=== PATIENT | male | born 1950 | race African-American/Black ===

== ENCOUNTER 2018-06-22 13:16 | Inpatient (IN) | payer BC, MEDICARE, OTHER ==
[2018-06-22 14:14] LABS: #Eosinphils 0.1 thou/uL (0.0-0.7); #Lymphocytes 1.1 thou/uL (1.20-3.40); #Monocytes 0.8 thou/uL (0.11-0.59); #Neutrophils 4.5 thou/uL (1.40-6.50); %Basophils 0.3 % (0.0-1.0); %Eosinophils 1.9 % (0.0-10.0); %Lymphocytes 17.3 % (21.0-51.0); %Monocytes 12.4 % (0.0-10.0); %Neutrophils 68.1 % (42.0-75.0); Hemoglobin 12.8 g/dL (14.0-18.0); Mean Corpuscular HGB CONC 29.6 g/dL (32.0-36.0); Mean Corpuscular Hemoglobin 29.3 pg (27.0-31.0); Mean Corpuscular Volume 99.1 fL (78.0-98.0); Mean Platelet Volume 7.9 fL (7.4-10.4); Platelet Count 148 thou/uL (130-400); RBC Distribution Width 14.6 % (11.5-14.5); Red Blood Cell (RBC) Count 4.36 mill/uL (4.70-6.10); White Blood Cell (WBC) Count 6.6 thou/uL (4.8-10.8)
--- NOTE | 2018-06-22 14:18 | RAD ---
PORTABLE CHEST: Date: 06-22-18 Provided Clinical History: Chest tightness and dyspnea. FINDINGS: Comparison is made with 04-23-08. The cardiac silhouette appears enlarged. The left lung base is suboptimally evaluated on this exam. T here is no definite focal consolidation, pleural fluid, or pneumothorax apparent. IMPRESSION: Cardiomegaly without evidence for an acute cardiopulmonary process. POS: [facility]
[2018-06-22 14:23] LABS: INR-International Normal Ratio 2.4; PTT 37.2 SEC (22.9-36.1); Prothrombin Time 26.4 SEC (12.0-14.7)
[2018-06-22 14:31] LABS: ALT (SGPT) 32 U/L (8-55); AST (SGOT) 43 U/L (5-34); Alkaline Phosphatase 114 U/L (40-150); Anion Gap 12 mmol/L (10-20); BUN (Urea Nitrogen) 29 mg/dL (8.4-25.7); CK (CPK) 36 U/L (30-200); Calc. Creatinine Clearance 0 mL/min (70-130); Carbon Dioxide 29 mmol/L (23-31); Chloride 96 mmol/L (98-107); Estimated GFR-MDRD 64; Globulin 4.7 g/dL (2.4-3.5); Glucose 124 mg/dL (80-115); Potassium 3.2 mmol/L (3.5-5.1); Protein, Total 7.7 g/dL (5.8-8.1); Sodium 134 mmol/L (136-145)
[2018-06-22] MEDS ORDERED: Nitroglycerin 2% Ointment 1 INCH/1 GM Packet ONE (14:33)
[2018-06-22] MEDS ORDERED: Nitroglycerin 0.4 MG TAB (25 Tab Bottle) ONE (14:33)
[2018-06-22 14:34] LABS: CKMB 1.4 ng/mL (0-6.6); Troponin I 0.154 ng/mL (< 0.028)
[2018-06-22] MEDS ORDERED: Furosemide 40 MG/4 ML VIAL ONE ×2 (15:12→15:18)
[2018-06-22] MEDS ORDERED: Nitroglycerin 0.4 MG TAB (25 Tab Bottle) PO PRN (16:38)
[2018-06-22] MEDS ORDERED: Ondansetron PF 4 MG/2 ML Vial IVP PRN (16:38)
[2018-06-22] MEDS ORDERED: Acetaminophen 325 MG TAB PO PRN (16:38)
[2018-06-22] MEDS ORDERED: Potassium Chloride 20 MEQ TAB PO SCH (16:45)
[2018-06-22 17:19] VITALS: BMI 27.9
--- NOTE | 2018-06-22 17:29 | HP ---
PRIMARY CARE PROVIDER: Marco Antonio Buckley MD, in [place]. PRIMARY CUSTOMER ACCOUNT EXECUTIVE: Dr. Nik Jean. PRIMARY CARDIO-ONCOLOGIST: Dr. Jewel Ibarra. CHIEF COMPLAINT: Shortness of breath. HISTORY OF PRESENT ILLNESS: Mr. Palacio is a pleasant 68-year-old gentleman who was seen at [facility] on 06/22/2018. He receives most of his medical care from [facility]. He repo rts that he was diagnosed with cardiac amyloidosis 2 months ago. He subsequently had a permanent pac emaker placed. He reports that it was not an AICD, but a pacemaker. The pacemaker site got infected . He had the permanent pacemaker removed. He was discharged home on 06/03/2018. He has been using a LifeVest since then. He reports that he developed shortness of breath with exertion. He reports occasional cough that is nonproductive. He denies any fevers or chills. He denies any abdominal pain. He receives care from home health agency 3 times a week. Today morning, he felt fine when he woke up. He subsequently brushed his teeth and then took a nap. Around 11 or 11:30 a.m., he felt short of breath. He reports that he always has orthopnea, that has not changed. He also reports bilateral lower extremity edema and he keeps his feet elevated for tianna t. He also reports that he had a brief chest tightness, but is unable to describe it further. 911 w as called. He received 3 aspirin and nitroglycerin, with the resolution of the chest tightness. Pat ient reports that he is currently feeling better. REVIEW OF SYSTEMS: All other systems reviewed and found to be negative. PAST MEDICAL HISTORY: Coronary artery disease, atrial fibrillation, status post PCI with stent, stat us post pacemaker and pacemaker removal, hypothyroidism, hypertension, and cardiac amyloidosis. PAST SURGICAL HISTORY: Permanent pacemaker placement and removal, and removal of part of intestine. SOCIAL HISTORY: No history of tobacco use, alcohol use or recreational drug use. FAMILY HISTORY: No family history of premature coronary artery disease. CODE STATUS: I discussed his code status. He is agreeable to chest compressions and electric shocks . He does not want to be intubated. CODE STATUS of DNI is being entered in the electronic medical r ecord. ALLERGIES: No known drug allergies. CURRENT MEDICATIONS: Warfarin 4 mg daily, metoprolol tartrate 50 mg every 8 hours as needed, magnesi um oxide 400 mg 2 times a day, minocycline 100 mg 2 times a day, torsemide 80 mg 3 times a day, fluti casone 50 mcg 2 sprays to nares once a day, Synthroid 175 mcg daily, Protonix 40 mg daily, Breo Ellip ta 1 inhalation daily, aspirin 81 mg daily, Os-Mushtaq 500 mg daily, vitamin D2 of 50,000 units once a we ek, Uloric 40 mg every other day and Cierra 60 mg daily. PHYSICAL EXAMINATION: GENERAL: Mr. Palacio is awake and alert, not in acute distress. VITAL SIGNS: Blood pressure is 110/80, pulse 102, oxygen saturation 100% on 3 liters of oxygen, he i s afebrile. EYES: No scleral icterus. No conjunctival pallor. ENT: Moist mucosal membranes, no oropharyngeal erythema or exudates. NECK: Supple, nontender, trachea is midline, he has jugular venous distention. RESPIRATORY: Accessory muscles of breathing are active. Chest wall movements are symmetric bilatera lly. LUNGS: Reveals a few bibasilar crackles. CARDIOVASCULAR: S1 and S2 are heard, regular. Peripheral pulses palpable. No carotid bruit, no per icardial rub. ABDOMEN: Soft, nontender, bowel sounds heard, no hepatomegaly, no splenomegaly. NEUROLOGIC: Cranial nerves II-XII are intact. Deep tendon reflexes are 2+. MUSCULOSKELETAL: Power is 5/5 in all 4 extremities. He has bilateral lower extremity edema. SKIN: No rashes or subcutaneous nodules. LYMPHATIC: No cervical lymphadenopathy. PSYCHIATRIC: Normal mood, normal affect. Patient is oriented to person, place, and time. LABORATORY DATA: Mr. Palacio's labs and investigations were reviewed. I reviewed his electrocardiog donny, which shows atrial fibrillation, no ST changes to suggest an acute coronary syndrome. I also re viewed his chest x-ray, which does not show any pulmonary infiltrates. There is no interstitial benedicto a. He has normal white count, macrocytic anemia with hemoglobin 12.8, normal platelet count. INR 2. 4, decreased sodium of 134, decreased potassium of 3.2, elevated blood urea nitrogen of 29, elevated creatinine of 1.34, decreased albumin of 3.0, mildly elevated AST of 43, normal total bilirubin, norm al ALT and normal alkaline phosphatase. First troponin I is indeterminate at 0.154. BNP is elevated at 1254. ASSESSMENT AND PLAN: Mr. Palacio is a pleasant 68-year-old gentleman who was seen at [facility] on 06/22/2018. His problem list includes: 1. Acute hypoxic respiratory failure: Mr. Palacio is presenting with acute hypoxic respiratory fail ure, most likely secondary to congestive heart failure exacerbation. He will be admitted to the hosp ital for further management, including intravenous diuretics. Cardiology service will be consulted f or opinion and help with management, given his complicated cardiac history. I will also obtain recor ds from his licensed psychiatric technician. 2. Acute on chronic congestive heart failure: We will start him on intravenous diuretics. I am not ordering a 2D echocardiogram, in case he had one done recently through his licensed psychiatric technician. I will janet it external records. 3. Hyponatremia: Mild, likely asymptomatic, we will recheck. 4. Hypokalemia: Replace potassium and recheck. 5. Renal insufficiency: Chronicity unclear, we will recheck his creatinine level. 6. Atrial fibrillation. Continue warfarin. 7. Hypothyroidism: Continue Synthroid. Many thanks for allowing me to participate in your patient's care. Please feel free to contact me wi th any questions or concerns. LEVEL OF RISK: High. LEVEL OF COMPLEXITY: High.
[2018-06-22 19:09] LABS: Troponin I 0.194 ng/mL (< 0.028)
[2018-06-22] MEDS ORDERED: Warfarin Sodium 2 MG TAB PO SCH (19:15)
[2018-06-22] MEDS: Metoprolol Tartrate 50 MG TAB PO SCH (21:01)
[2018-06-22] MEDS: Magnesium Oxide 400 MG TAB PO SCH (21:01)
[2018-06-22 21:24] LABS: Troponin I 0.178 ng/mL (< 0.028)
[2018-06-23] MEDS: Melatonin 3 MG TAB PO PRN ×3 (00:01→21:12)
[2018-06-23] MEDS ORDERED: Furosemide 40 MG/4 ML VIAL SLOW IVP SCH (06:00)
[2018-06-23 06:04] LABS: INR-International Normal Ratio 2.6; Prothrombin Time 27.6 SEC (12.0-14.7)
[2018-06-23 06:13] LABS: Anion Gap 12 mmol/L (10-20); BUN (Urea Nitrogen) 32 mg/dL (8.4-25.7); Calc. Creatinine Clearance 59 mL/min (70-130); Calcium 9.5 mg/dL (7.8-10.44); Carbon Dioxide 33 mmol/L (23-31); Chloride 96 mmol/L (98-107); Estimated GFR-MDRD 62; Glucose 86 mg/dL (80-115); Sodium 137 mmol/L (136-145)
[2018-06-23 06:14] LABS: #Basophils 0.1 thou/uL (0.0-0.2); #Eosinphils 0.1 thou/uL (0.0-0.7); #Lymphocytes 1.8 thou/uL (1.20-3.40); #Monocytes 0.9 thou/uL (0.11-0.59); #Neutrophils 5.2 thou/uL (1.40-6.50); %Basophils 0.7 % (0.0-1.0); %Eosinophils 1.3 % (0.0-10.0); %Lymphocytes 22.2 % (21.0-51.0); %Monocytes 11.5 % (0.0-10.0); %Neutrophils 64.4 % (42.0-75.0); Hemoglobin 13.2 g/dL (14.0-18.0); Mean Corpuscular HGB CONC 29.8 g/dL (32.0-36.0); Mean Corpuscular Hemoglobin 29.5 pg (27.0-31.0); Mean Corpuscular Volume 98.8 fL (78.0-98.0); Mean Platelet Volume 8.3 fL (7.4-10.4); Platelet Count 173 thou/uL (130-400); RBC Distribution Width 14.6 % (11.5-14.5); Red Blood Cell (RBC) Count 4.48 mill/uL (4.70-6.10)
[2018-06-23] MEDS: Levothyroxine 175 MCG TAB PO SCH (06:22)
[2018-06-23] MEDS: Mometasone/Formoterol 120 PUFF INHALER INH SCH ×2 (06:50→19:44)
[2018-06-23] MEDS ORDERED: Non-Formulary Item 1 EACH (Fexofenadine Hcl [Allegra Allergy] 60 MG) PO SCH (09:00)
[2018-06-23] MEDS ORDERED: Non-Formulary Item 1 EACH (Fluticasone/Vilanterol [Breo Ellipta 200-25 Mcg Inh] 1 EACH) IH SCH (09:00)
[2018-06-23] MEDS: Magnesium Oxide 400 MG TAB PO SCH ×2 (09:19→21:12)
[2018-06-23] MEDS: Loratadine 10 MG TAB PO SCH (09:19)
[2018-06-23] MEDS: Metoprolol Tartrate 50 MG TAB PO SCH ×3 (09:19→21:12)
[2018-06-23] MEDS: Aspirin 81 mg Enteric Coated Tablet PO SCH (09:19)
[2018-06-23] MEDS: Calcium Carbonate + Vit D 250 MG TAB PO SCH (09:24)
[2018-06-23] MEDS ORDERED: Furosemide 100 MG/10 ML VIAL SLOW IVP SCH (11:15)
[2018-06-23] MEDS ORDERED: Metolazone 5 MG TAB PO SCH (11:15)
[2018-06-23] MEDS: Fluticasone Propionate Nasal Spray 16 gm Bottle NASAL SCH (11:46)
[2018-06-23] MEDS: Febuxostat 40 MG TAB PO SCH (11:46)
--- NOTE | 2018-06-23 12:52 | CON ---
DATE OF CONSULTATION: 06/23/2018 REASON FOR CONSULTATION: Heart failure. HISTORY OF PRESENT ILLNESS: Mr. Palacio is a very pleasant 68-year-old gentleman wh o comes to the hospital for increased shortness of breath. He has a history of amyloid cardiomyopath y reviewing the records from the [facility] which is where he gets all his cardiac care. He had an EF of 40-45%, has had atrial fibrillation with multiple ablations, which have been unsuccessfu l. He had a thrombus in the left atrial appendage, which he is on Coumadin now for. He had a pacema ker, right and left ventricular leads were placed for dual chamber pacer in preparation of AV amari a blation; however, the pocket got infected and this was taken out and has been on a LifeVest since. C keeshatly, he came in because he was significantly more short of breath than normal and his legs were swelling much more so he decided to come in for evaluation. On my evaluation, he extremely short of breath just with talking, significant orthopnea and PND PAST MEDICAL HISTORY: 1. Amyloid cardiomyopathy. 2. EF at 40-45% on last echo at [facility] just about a month and a half ago. 3. Atrial fibrillation, status post AV node ablation x2 4. Coronary artery disease, status post stent to the left circumflex in 2007. 5. Hyperlipidemia. 6. Hypertension. 7. Hypothyroidism. 8. Pulmonary hypertension. 9. Thrombus of left atrial appendage secondary to chronic atrial fibrillation. PAST SURGICAL HISTORY: 1. Abdominal surgeries in the past. 2. Cardiac catheterization most recently in February of this year, radial approach. No stent was placed . 3. PVI in 2016 and a redo in 02/2018. 4. Cardioversions in the past. 5. Left circumflex stent in 2007. SOCIAL HISTORY: No tobacco, no drugs. Drinks about 12 cans of beer a week. FAMILY HISTORY: Noncontributory. REVIEW OF SYSTEMS: A 12-point review of systems was done and is otherwise negative unless stated in the history of present illness. PHYSICAL EXAMINATION: VITAL SIGNS: Temperature 97.8, pulse 96, respiration rate 20, satting 100% on 3 liters, blood pressu re 110/77. GENERAL: Awake, alert, oriented x3, in mild respiratory distress. If he is just sitting there he is comfortable. HEENT: Normocephalic, atraumatic. NECK: JVD up to about 15 cm of water. LUNGS: Have crackles bilaterally. CARDIOVASCULAR: S1, S2. No S3 or S4. ABDOMEN: Soft. Positive bowel sounds. EXTREMITIES: 3+ edema. SKIN: Warm and dry. LABORATORY DATA: Reviewed. White count of 6.6, hemoglobin 12.8, hematocrit 43, platelet count 148. Coags were reviewed. INR is therapeutic at 2.6. Chemistries were reviewed. Sodium 137, potassium 4.0, chloride of 96, carbon dioxide of 33, BUN of 32, creatinine 1.37, troponin has been indeterminat e range 0.15, 0.19, 0.17 and BNP of 1254, albumin of 3.0. EKG was reviewed. Chest x-ray was reviewed, no acute cardiopulmonary issues. ASSESSMENT AND PLAN: 1. Acute on chronic systolic and diastolic heart failure. 2. Pulmonary hypertension, likely decompensated at this time. 3. Cardiac amyloidosis 3. Coronary artery disease, stable. PLAN: 1. We will increase and maximize diuresis for now. We will increase Lasix to 80 mg IV b.i.d. We chu l give one dose of 80 IV once and will add metolazone 5 mg a day. 2. Records from [facility] have been reviewed. 3. He is extremely ill and if his renal function starts to increase and diuresis is not optimal, he may need an inotrope to increase cardiac output. 4. Echocardiogram to be done to make sure his LV function remains the same. Thank you for allowing me to participate in the care of your patient. We will follow the patient.
[2018-06-23] MEDS: Furosemide 40 MG/4 ML VIAL SLOW IVP SCH (14:38)
[2018-06-23] MEDS: Warfarin Sodium 2 MG TAB PO SCH (16:23)
[2018-06-24] MEDS: Levothyroxine 175 MCG TAB PO SCH (05:50)
[2018-06-24] MEDS: Furosemide 40 MG/4 ML VIAL SLOW IVP SCH ×2 (05:50→14:32)
[2018-06-24] MEDS: Mometasone/Formoterol 120 PUFF INHALER INH SCH ×2 (07:05→18:54)
[2018-06-24] MEDS ORDERED: Sodium Chloride 0.9% 10 ML ONE (08:34)
[2018-06-24] MEDS: Loratadine 10 MG TAB PO SCH (08:57)
[2018-06-24] MEDS: Aspirin 81 mg Enteric Coated Tablet PO SCH (08:57)
[2018-06-24] MEDS: Calcium Carbonate + Vit D 250 MG TAB PO SCH (08:57)
[2018-06-24] MEDS: Metoprolol Tartrate 50 MG TAB PO SCH ×3 (08:57→20:42)
[2018-06-24] MEDS: Magnesium Oxide 400 MG TAB PO SCH ×2 (08:57→20:42)
[2018-06-24] MEDS: Fluticasone Propionate Nasal Spray 16 gm Bottle NASAL SCH (08:57)
--- NOTE | 2018-06-24 10:05 | PDOC.CTH ---
Cardiology Progress Note - Subjective He continues to feel SOB. - Objective Vital Signs Temp Pulse Resp BP Pulse Ox 06/24/18 07:51 98.6 F 97 18 125/79 97 06/24/18 07:06 99 06/24/18 07:05 91 18 06/24/18 04:20 97.2 F L 84 18 117/76 100 Weight 175 lb 14.4 oz 06/23/18 06/24/18 06/25/18 06:59 06:59 06:59 Intake Total 590 640 Output Total 625 1235 Balance -35 -595 - Physical Examination General/Neuro: alert & oriented x3 Neck: no JVD present Lungs: unlabored respirations Heart: RRR Abdomen: NT/ND Extremities: + edema B (2+) - Telemetry Telemetry Rhythm: NSR - Labs Result Diagrams: 06/23/18 05:46 06/23/18 05:46 Troponin/CKMB CK-MB (CK-2) 1.4 ng/mL (0-6.6) 06/22/18 13:57 Troponin I 0.178 ng/mL (< 0.028) H 06/22/18 20:40 - Assessment/Plan 1. Acute on chronic systolic and diastolic heart failure. 2. Atrial fibrillation, chronic, rate controlled. 3. Amyloid heart 4. EF at 40-45% 5. S.P BiV pacemaker removl due to pocket infection,. 6. S/P PVAI, x 2, currently awaiting AVJ ablation once PPM can be placed. 7. CAD s/p stent to LCx in 2007. 8. Pulmonary hypertension. PLAN: - Continue diuresis. - IV lasix BID at current dose and daily metolazone. - If no improvement in the next 24 to 48 hrs will need milrinone drip. Most of his fluid is on his right side, abdomen and legs.
[2018-06-24] MEDS ORDERED: Metolazone 5 MG TAB PO SCH (10:15)
--- NOTE | 2018-06-24 12:08 | PDOC.PN ---
- Subjective Encounter Start Date: 06/23/18 Encounter Start Time: 14:00 -: old records requested/rev Pt seen and examined, chart reviewed in its entirety, this is my first visit with this patient Follow up for acute on chronic CHF, combined systolic and diastolic, dyspnea, acute hypoxemic resp failure, amyloid heart Admitted overnight, states breathing isnt really any better, but no worse, no CP , no F/C, no cough, no D/C All systems reviewed and neg x as above - Objective Resuscitation Status: Resuscitation Status DNI:No Intubation MAR Reviewed: Yes Vital Signs & Weight: Vital Signs (12 hours) Temp Pulse Resp BP Pulse Ox 06/24/18 07:51 98.6 F 97 18 125/79 97 06/24/18 07:06 99 06/24/18 07:05 91 18 06/24/18 04:20 97.2 F L 84 18 117/76 100 Weight Weight 175 lb 14.4 oz I&O: 06/23/18 06/24/18 06/25/18 06:59 06:59 06:59 Intake Total 590 640 Output Total 625 1235 Balance -35 -595 Result Diagrams: 06/23/18 05:46 06/23/18 05:46 Additional Labs: Accuchecks 06/24/18 06/24/18 06/23/18 11:01 06:13 21:48 POC Glucose 125 H 104 123 H Radiology Reviewed by me: Yes EKG Reviewed by me: Yes Phys Exam - Physical Examination Constitutional: NAD chronically ill-appearing, no resp distress HEENT: PERRLA, moist MMs, sclera anicteric, oral pharynx no lesions Neck: no nodes, no JVD, supple, full ROM coarse R>L bibasialr crackles, dont clear with deep inspiration irregularly irregualr, no sig murmurs Gastrointestinal: soft, non-tender, no distention, positive bowel sounds Musculoskeletal: edema present 2+ to knees, apparently improved Neurological: non-focal, normal sensation, moves all 4 limbs Lymphatic: no nodes Psychiatric: normal affect, A&O x 3 Skin: no rash, normal turgor, cap refill <2 seconds Dx/Plan (1) Acute hypoxemic respiratory failure Code(s): J96.01 - ACUTE RESPIRATORY FAILURE WITH HYPOXIA Status: Acute (2) Acute on chronic combined systolic (congestive) and diastolic (congestive) heart failure Code(s): I50.43 - ACUTE ON CHRONIC COMBINED SYSTOLIC AND DIASTOLIC HRT FAIL Status: Acute Comment: cards consulted, echo ordered, follow up on their recommendations, get echo from his primary environmental compliance manager i believe in [place] (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 - ORGAN-LIMITED AMYLOIDOSIS; I43 - CARDIOMYOPATHY IN DISEASES CLASSIFIED ELSEWHERE Status: Chronic (4) Hyponatremia Code(s): E87.1 - HYPO-OSMOLALITY AND HYPONATREMIA Status: Chronic (5) Hypokalemia Code(s): E87.6 - HYPOKALEMIA Status: Acute - Plan cont current plan of care, plan discussed w/ family, PT/OT, out of bed/ambulate * .
--- NOTE | 2018-06-24 12:13 | PDOC.PN ---
- Subjective Encounter Start Date: 06/24/18 Encounter Start Time: 09:00 pt feels about the same,feels bad, but admits he never feels good. breathing is better to my eye, less edema. some response to diuresis, hasnt slept well in several days No BM in 3-4 days No F/C,no N/V, no cough or sputum production all systesm reviewed and neg x as above - Objective Resuscitation Status: Resuscitation Status DNI:No Intubation MAR Reviewed: Yes Vital Signs & Weight: Vital Signs (12 hours) Temp Pulse Resp BP Pulse Ox 06/24/18 07:51 98.6 F 97 18 125/79 97 06/24/18 07:06 99 06/24/18 07:05 91 18 06/24/18 04:20 97.2 F L 84 18 117/76 100 Weight Weight 175 lb 14.4 oz I&O: 06/23/18 06/24/18 06/25/18 06:59 06:59 06:59 Intake Total 590 640 Output Total 625 1235 Balance -35 -595 Result Diagrams: 06/23/18 05:46 06/23/18 05:46 Additional Labs: Accuchecks 06/24/18 06/24/18 06/23/18 11:01 06:13 21:48 POC Glucose 125 H 104 123 H Phys Exam - Physical Examination Constitutional: NAD NC on forehead... HEENT: PERRLA, moist MMs, sclera anicteric, oral pharynx no lesions Neck: no nodes, supple, full ROM Respiratory: no wheezing, no rales, no rhonchi Cardiovascular: no significant murmur, no rub, irregular Gastrointestinal: soft, non-tender, no distention, positive bowel sounds slightly hyperactive, no fluid Musculoskeletal: no edema Neurological: non-focal, normal sensation, moves all 4 limbs Lymphatic: no nodes Psychiatric: normal affect, A&O x 3 Skin: no rash, normal turgor, cap refill <2 seconds Dx/Plan (1) Acute hypoxemic respiratory failure Code(s): J96.01 - ACUTE RESPIRATORY FAILURE WITH HYPOXIA Status: Acute Comment: wean o2 as tolerated. (2) Acute on chronic combined systolic (congestive) and diastolic (congestive) heart failure Code(s): I50.43 - ACUTE ON CHRONIC COMBINED SYSTOLIC AND DIASTOLIC HRT FAIL Status: Acute Comment: cards consulted, echo ordered, follow up on their recommendations, last EF 40-45%, severe PH andf diastolic dysfunction, continue IV lasix for diuresis (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 - ORGAN-LIMITED AMYLOIDOSIS; I43 - CARDIOMYOPATHY IN DISEASES CLASSIFIED ELSEWHERE Status: Chronic (4) Hyponatremia Code(s): E87.1 - HYPO-OSMOLALITY AND HYPONATREMIA Status: Chronic (5) Hypokalemia Code(s): E87.6 - HYPOKALEMIA Status: Resolved - Plan cont current plan of care, plan discussed w/ family, PT/OT * .
[2018-06-24 12:30] LABS: INR-International Normal Ratio 3.2
[2018-06-24] MEDS: Warfarin Sodium 2 MG TAB PO SCH (16:32)
[2018-06-25] MEDS: Furosemide 40 MG/4 ML VIAL SLOW IVP SCH ×2 (05:41→14:53)
[2018-06-25] MEDS: Levothyroxine 175 MCG TAB PO SCH (05:41)
[2018-06-25 05:50] LABS: #Eosinphils 0.2 thou/uL (0.0-0.7); #Lymphocytes 1.3 thou/uL (1.20-3.40); #Monocytes 0.8 thou/uL (0.11-0.59); %Basophils 0.5 % (0.0-1.0); %Eosinophils 2.3 % (0.0-10.0); %Lymphocytes 18.1 % (21.0-51.0); %Monocytes 11.2 % (0.0-10.0); %Neutrophils 67.9 % (42.0-75.0); Hemoglobin 12.9 g/dL (14.0-18.0); Mean Corpuscular HGB CONC 30.4 g/dL (32.0-36.0); Mean Corpuscular Hemoglobin 29.2 pg (27.0-31.0); Mean Corpuscular Volume 95.9 fL (78.0-98.0); Mean Platelet Volume 8.4 fL (7.4-10.4); Platelet Count 160 thou/uL (130-400); RBC Distribution Width 14.6 % (11.5-14.5); Red Blood Cell (RBC) Count 4.43 mill/uL (4.70-6.10); White Blood Cell (WBC) Count 7.3 thou/uL (4.8-10.8)
[2018-06-25 06:07] LABS: Anion Gap 16 mmol/L (10-20); BUN (Urea Nitrogen) 43 mg/dL (8.4-25.7); Calc. Creatinine Clearance 44 mL/min (70-130); Carbon Dioxide 25 mmol/L (23-31); Chloride 91 mmol/L (98-107); Estimated GFR-MDRD 47; Glucose 120 mg/dL (80-115); Magnesium 1.9 mg/dL (1.6-2.6); Potassium 3.4 mmol/L (3.5-5.1); Sodium 129 mmol/L (136-145)
[2018-06-25 06:20] LABS: INR-International Normal Ratio 3.3; Prothrombin Time 33.5 SEC (12.0-14.7)
[2018-06-25] MEDS: Mometasone/Formoterol 120 PUFF INHALER INH SCH ×2 (06:27→19:17)
--- NOTE | 2018-06-25 07:42 | PDOC.CTH ---
<Jodi Castillo - Last Filed: 06/25/18 08:54> Cardiology Progress Note - Subjective Continues to feel short of breath. No other acute complaints. - ROS shortness of breath - Objective Vital Signs Temp Pulse Resp BP Pulse Ox 06/25/18 07:20 97.5 F L 71 15 132/82 100 06/25/18 06:28 100 06/25/18 06:27 74 16 06/25/18 04:00 97.1 F L 61 18 122/85 96 06/25/18 03:46 97 06/25/18 00:00 92 139/84 Weight 173 lb 11.2 oz 06/24/18 06/25/18 06/26/18 06:59 06:59 06:59 Intake Total 640 800 Output Total 1235 1700 Balance -595 -900 - Physical Examination General/Neuro: alert & oriented x3 Neck: no JVD present Lungs: CTA, unlabored respirations Heart: other: (Irregularly irregular) Extremities: + edema B (2+ edema BLE) - Telemetry Telemetry Rhythm: Afib 90s-100s - Labs Result Diagrams: 06/25/18 05:22 06/25/18 05:22 Troponin/CKMB CK-MB (CK-2) 1.4 ng/mL (0-6.6) 06/22/18 13:57 Troponin I 0.178 ng/mL (< 0.028) H 06/22/18 20:40 - Assessment/Plan 1. Acute on chronic systolic and diastolic heart failure. 2. Atrial fibrillation, chronic, rate controlled. On warfarin. 3. Amyloid heart 4. EF at 40-45% 5. S.P BiV pacemaker removl due to pocket infection,. 6. S/P PVAI, x 2, currently awaiting AVJ ablation once PPM can be placed. 7. CAD s/p stent to LCx in 2007 8. Pulmonary hypertension. 9. NSVT-10 beats, asymptomatic. Life Vest in place. 10. Hyponatremia-Na+ 129 PLAN: - Continue diuresis. Replace potassium. BMP in am. - IV lasix BID at current dose and daily metolazone. <Gabriella Ruiz - Last Filed: 06/25/18 08:56> Cardiology Progress Note - Objective Vital Signs Temp Pulse Resp BP Pulse Ox 06/25/18 07:20 97.5 F L 71 15 132/82 100 06/25/18 06:28 100 06/25/18 06:27 74 16 06/25/18 04:00 97.1 F L 61 18 122/85 96 06/25/18 03:46 97 06/25/18 00:00 92 139/84 Weight 173 lb 11.2 oz 06/24/18 06/25/18 06/26/18 06:59 06:59 06:59 Intake Total 640 800 Output Total 1235 1700 Balance -595 -900 - Labs Result Diagrams: 06/25/18 05:22 06/25/18 05:22 Troponin/CKMB CK-MB (CK-2) 1.4 ng/mL (0-6.6) 06/22/18 13:57 Troponin I 0.178 ng/mL (< 0.028) H 06/22/18 20:40 Attending Addendum - Attending Addendum Date/Time: 06/25/18 1478 I personally evaluated the patient and discussed the management with Jodi Castillo I agree with the History, Examination, Assessment and Plan documented above with any addition or exceptions noted below.
[2018-06-25] MEDS ORDERED: Potassium Chloride 20 MEQ TAB PO SCH (08:00)
[2018-06-25] MEDS ORDERED: Potassium Chloride 20 MEQ TAB ONE (08:17)
[2018-06-25] MEDS: Aspirin 81 mg Enteric Coated Tablet PO SCH (08:20)
[2018-06-25] MEDS: Calcium Carbonate + Vit D 250 MG TAB PO SCH (08:20)
[2018-06-25] MEDS: Loratadine 10 MG TAB PO SCH (08:20)
[2018-06-25] MEDS: Metolazone 5 MG TAB PO SCH (08:20)
[2018-06-25] MEDS: Magnesium Oxide 400 MG TAB PO SCH ×2 (08:20→21:55)
[2018-06-25] MEDS: Fluticasone Propionate Nasal Spray 16 gm Bottle NASAL SCH (08:20)
[2018-06-25] MEDS: Febuxostat 40 MG TAB PO SCH (08:20)
[2018-06-25] MEDS: Metoprolol Tartrate 50 MG TAB PO SCH ×3 (08:20→21:55)
--- NOTE | 2018-06-25 13:29 | PDOC.PN ---
- Subjective Encounter Start Date: 06/25/18 Encounter Start Time: 09:50 Follow up for acut elisabeth chronic combined systolic and diastolic CHF. repsnsing to diureses, SOB at rest improved, still iwth NDIAYE, no PND, no orthopnea No F/C, no N/V/D/C, no CP or sOB, no cough or sputum All systems reviewed and neg x as above - Objective Resuscitation Status: Resuscitation Status DNI:No Intubation MAR Reviewed: Yes Vital Signs & Weight: Vital Signs (12 hours) Temp Pulse Resp BP BP Pulse Ox 06/25/18 11:25 97.0 F L 61 16 128/97 H 96 06/25/18 07:20 97.5 F L 71 15 132/82 100 06/25/18 06:28 100 06/25/18 06:27 74 16 06/25/18 04:00 97.1 F L 61 18 122/85 96 06/25/18 03:46 97 Weight Weight 173 lb 11.2 oz I&O: 06/24/18 06/25/18 06/26/18 06:59 06:59 06:59 Intake Total 640 800 Output Total 1235 1700 Balance -595 -900 Result Diagrams: 06/25/18 05:22 06/26/18 03:13 Additional Labs: Accuchecks 06/25/18 06/25/18 06/24/18 11:25 05:26 20:42 POC Glucose 93 125 H 82 06/24/18 16:15 POC Glucose 136 H Phys Exam - Physical Examination Constitutional: NAD HEENT: PERRLA, moist MMs, sclera anicteric, oral pharynx no lesions Neck: no nodes, no JVD, supple, full ROM Respiratory: no wheezing, no rales, no rhonchi, clear to auscultation bilateral Cardiovascular: no significant murmur Gastrointestinal: soft, non-tender, no distention, positive bowel sounds Musculoskeletal: edema present improving Neurological: non-focal, normal sensation, moves all 4 limbs Lymphatic: no nodes Psychiatric: A&O x 3 Skin: no rash, normal turgor, cap refill <2 seconds Dx/Plan (1) Acute hypoxemic respiratory failure Code(s): J96.01 - ACUTE RESPIRATORY FAILURE WITH HYPOXIA Status: Acute Comment: wean o2 as tolerated. 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 CCM, continue diuresis, follow up on cardiology recs
[2018-06-25] MEDS: Warfarin Sodium 2 MG TAB PO SCH (17:25)
[2018-06-25] MEDS: Melatonin 3 MG TAB PO PRN (22:24)
[2018-06-26 04:35] LABS: INR-International Normal Ratio 3.4; Prothrombin Time 34.1 SEC (12.0-14.7)
[2018-06-26 04:42] LABS: Anion Gap 15 mmol/L (10-20); BUN (Urea Nitrogen) 46 mg/dL (8.4-25.7); Calc. Creatinine Clearance 41 mL/min (70-130); Calcium 9.2 mg/dL (7.8-10.44); Carbon Dioxide 33 mmol/L (23-31); Chloride 88 mmol/L (98-107); Estimated GFR-MDRD 43; Glucose 92 mg/dL (80-115); Potassium 3.5 mmol/L (3.5-5.1); Sodium 132 mmol/L (136-145)
[2018-06-26] MEDS: Levothyroxine 175 MCG TAB PO SCH (05:38)
[2018-06-26] MEDS: Furosemide 40 MG/4 ML VIAL SLOW IVP SCH ×2 (05:38→14:00)
[2018-06-26] MEDS: Mometasone/Formoterol 120 PUFF INHALER INH SCH ×2 (07:29→18:59)
--- NOTE | 2018-06-26 07:51 | PDOC.CTH ---
Cardiology Progress Note - Subjective Overall, feels the same-continues to feel short of breath with minimal movement. Denies chest pain. - ROS shortness of breath - Objective Vital Signs Temp Pulse Resp BP BP Pulse Ox 06/26/18 07:30 100 06/26/18 07:29 76 16 06/26/18 04:15 97.2 F L 99 18 112/82 100 06/25/18 21:51 97.8 F 65 20 118/70 100 Weight 172 lb 1 oz 06/25/18 06/26/18 06/27/18 06:59 06:59 06:59 Intake Total 800 2740 Output Total 1700 2750 Balance -900 -10 - Physical Examination General/Neuro: alert & oriented x3, NAD Neck: no JVD present Lungs: unlabored respirations Heart: other: (Irregularly irregular) Abdomen: NT/ND, soft Extremities: + edema B Other PE findings: MIld BLE edema - Telemetry Telemetry Rhythm: AFib/Aflutter 80s-90s - Labs Result Diagrams: 06/25/18 05:22 06/26/18 03:13 Troponin/CKMB CK-MB (CK-2) 1.4 ng/mL (0-6.6) 06/22/18 13:57 Troponin I 0.178 ng/mL (< 0.028) H 06/22/18 20:40 - Assessment/Plan 1. Acute on chronic systolic and diastolic heart failure. 2. Atrial fibrillation, chronic, rate controlled. On warfarin. 3. Amyloid heart 4. EF at 40-45% 5. S.P BiV pacemaker removal due to pocket infection,. 6. S/P PVAI, x 2, currently awaiting AVJ ablation once PPM can be placed. 7. CAD s/p stent to LCx in 2007 8. Pulmonary hypertension. 9. NSVT-no recurrence. Life Vest in place. 10. Hyponatremia-Na+ 132, improving PLAN: - Continue diuresis, IV lasix BID at current dose and daily metolazone. Continue to trend creatinine, 1.[address] Mcmahon will resume care tomorrow.
[2018-06-26] MEDS: Fluticasone Propionate Nasal Spray 16 gm Bottle NASAL SCH (10:03)
[2018-06-26] MEDS: Metoprolol Tartrate 50 MG TAB PO SCH ×3 (10:04→22:00)
[2018-06-26] MEDS: Loratadine 10 MG TAB PO SCH (10:04)
[2018-06-26] MEDS: Calcium Carbonate + Vit D 250 MG TAB PO SCH (10:04)
[2018-06-26] MEDS: Potassium Chloride 20 MEQ TAB PO SCH (10:04)
[2018-06-26] MEDS: Magnesium Oxide 400 MG TAB PO SCH ×2 (10:04→22:00)
[2018-06-26] MEDS: Aspirin 81 mg Enteric Coated Tablet PO SCH (10:04)
[2018-06-26] MEDS: Metolazone 5 MG TAB PO SCH (10:04)
--- NOTE | 2018-06-26 10:30 | PRG ---
DATE OF SERVICE: 06/26/2018 SUBJECTIVE: This is in addition to the note in the chart from the nurse practitioner working with me , Jodi Castillo. Mr. Palacio is feeling better. His breathing has improved. OBJECTIVE: VITAL SIGNS: His blood pressure 126/70 and pulse 77. LUNGS: Clear. CARDIAC: Normal S1 and normal S2. EKG does reveal nonsustained V-tach. ASSESSMENT: 1. Diastolic heart failure. 2. Ventricular tachycardia, LifeVest in place. 3. Continuing to improve. Dr. Carroll will return to resume care tomorrow.
--- NOTE | 2018-06-26 11:14 | PDOC.PN ---
- Subjective Encounter Start Date: 06/26/18 Encounter Start Time: 09:20 Follow up for acute on chronic combined systolic and diastolic CHF. repsnsing to diureses, SOB at rest improved, still iwth NDIAYE, no PND, no orthopnea No F/C, no N/V/D/C, no CP or sOB, no cough or sputum All systems reviewed and neg x as above - Objective Resuscitation Status: Resuscitation Status DNI:No Intubation MAR Reviewed: Yes Vital Signs & Weight: Vital Signs (12 hours) Temp Pulse Resp BP Pulse Ox 06/26/18 07:30 97.7 F 77 18 126/71 100 06/26/18 07:29 76 16 06/26/18 04:15 97.2 F L 99 18 112/82 100 Weight Weight 172 lb 1 oz I&O: 06/25/18 06/26/18 06/27/18 06:59 06:59 06:59 Intake Total 800 2740 Output Total 1700 2750 Balance -900 -10 Result Diagrams: 06/25/18 05:22 06/26/18 03:13 Additional Labs: Accuchecks 06/26/18 06/25/18 06/25/18 04:58 21:07 18:59 POC Glucose 98 124 H 140 H 06/25/18 06/25/18 06/25/18 17:42 17:06 17:04 POC Glucose 44 L* 41 L* 38 L* 06/25/18 11:25 POC Glucose 93 Phys Exam - Physical Examination Constitutional: NAD HEENT: PERRLA, moist MMs, sclera anicteric, oral pharynx no lesions Neck: no nodes, no JVD, supple, full ROM Respiratory: no wheezing, no rales, no rhonchi, clear to auscultation bilateral Cardiovascular: no significant murmur, irregular Gastrointestinal: soft, non-tender, no distention, positive bowel sounds Musculoskeletal: no edema Neurological: non-focal, normal sensation, moves all 4 limbs Lymphatic: no nodes Psychiatric: normal affect, A&O x 3 Skin: no rash, normal turgor, cap refill <2 seconds Dx/Plan (1) Acute hypoxemic respiratory failure Code(s): J96.01 - ACUTE RESPIRATORY FAILURE WITH HYPOXIA Status: Acute Comment: wean o2 as tolerated. 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
[2018-06-26] MEDS ORDERED: Sodium Chloride 0.9% 10 ML ONE (13:54)
[2018-06-26] MEDS: Warfarin Sodium 2 MG TAB PO SCH (17:26)
[2018-06-26] MEDS: Melatonin 3 MG TAB PO PRN (23:38)
[2018-06-27] MEDS: Levothyroxine 175 MCG TAB PO SCH (05:39)
[2018-06-27] MEDS: Furosemide 40 MG/4 ML VIAL SLOW IVP SCH ×2 (05:39→14:11)
[2018-06-27 05:43] LABS: #Eosinphils 0.2 thou/uL (0.0-0.7); #Lymphocytes 1.6 thou/uL (1.20-3.40); #Monocytes 0.9 thou/uL (0.11-0.59); #Neutrophils 5.2 thou/uL (1.40-6.50); %Basophils 0.5 % (0.0-1.0); %Eosinophils 2.2 % (0.0-10.0); %Lymphocytes 20.2 % (21.0-51.0); %Neutrophils 66.1 % (42.0-75.0); Hemoglobin 13.3 g/dL (14.0-18.0); Mean Corpuscular HGB CONC 30.9 g/dL (32.0-36.0); Mean Corpuscular Hemoglobin 29.6 pg (27.0-31.0); Mean Corpuscular Volume 95.8 fL (78.0-98.0); Mean Platelet Volume 7.9 fL (7.4-10.4); Platelet Count 197 thou/uL (130-400); Prothrombin Time 40.7 SEC (12.0-14.7); RBC Distribution Width 14.6 % (11.5-14.5); Red Blood Cell (RBC) Count 4.49 mill/uL (4.70-6.10); White Blood Cell (WBC) Count 7.9 thou/uL (4.8-10.8)
[2018-06-27 05:45] LABS: INR-International Normal Ratio 4.2
[2018-06-27 05:52] LABS: Anion Gap 14 mmol/L (10-20); BUN (Urea Nitrogen) 50 mg/dL (8.4-25.7); Calc. Creatinine Clearance 44 mL/min (70-130); Carbon Dioxide 30 mmol/L (23-31); Chloride 89 mmol/L (98-107); Estimated GFR-MDRD 48; Glucose 116 mg/dL (80-115); Magnesium 1.6 mg/dL (1.6-2.6); Potassium 3.1 mmol/L (3.5-5.1); Sodium 130 mmol/L (136-145)
[2018-06-27] MEDS: Mometasone/Formoterol 120 PUFF INHALER INH SCH ×2 (06:21→19:12)
[2018-06-27] MEDS: Fluticasone Propionate Nasal Spray 16 gm Bottle NASAL SCH (09:27)
[2018-06-27] MEDS: Calcium Carbonate + Vit D 250 MG TAB PO SCH (09:28)
[2018-06-27] MEDS: Febuxostat 40 MG TAB PO SCH (09:28)
[2018-06-27] MEDS: Potassium Chloride 20 MEQ TAB PO SCH (09:28)
[2018-06-27] MEDS: Metoprolol Tartrate 50 MG TAB PO SCH ×3 (09:28→21:17)
[2018-06-27] MEDS: Magnesium Oxide 400 MG TAB PO SCH ×2 (09:28→21:17)
[2018-06-27] MEDS: Metolazone 5 MG TAB PO SCH (09:28)
[2018-06-27] MEDS: Loratadine 10 MG TAB PO SCH (09:28)
[2018-06-27] MEDS: Aspirin 81 mg Enteric Coated Tablet PO SCH (09:28)
--- NOTE | 2018-06-27 09:43 | PQF ---
CLINICAL DOCUMENTATION IMPROVEMENT CLARIFICATION FORM: ICD-10 Updated PLEASE DO AN ADDENDUM TO THE PROGRESS NOTE WITH ANY DOCUMENTATION UPDATES OR ADDITIONS AND CARRY THROUGH TO DC SUMMARY. THANK YOU. DATE: 06/27, ATTN: DR. LETTY KIRKPATRICK Please exercise your independent, professional judgment in responding to the clarification form. Clinical indicators are provided on the bottom of this form for your review. Please check appropriate box(s): ELEVATED TROPONIN I D/T: [ ] Demand Ischemia [ ] Not D/T Demand Ischemia [ ] Associated Diagnosis: [ ] Other diagnosis [ x ] Unable to determine For continuity of documentation, please document condition throughout progress notes and discharge summary. Thank You. CLINICAL INDICATORS - SIGNS / SYMPTOMS/ LABS are present in the medical record: TROP I: 0.154, 0.194, 0.178 (ADMIT, 06/22) H&P DOCUMENTATION 06/22: LAB DATA: FIRST TROPONIN IS INDETERMINATE CARDIOLOGY CONSULT 06/13: LAB DATA: TROPONIN HAS BEEN INDETERMINATE RANGE 0.15 , 0.19, 0.17 RISK FACTORS: ACUTE ON CHRONIC SYSTOLIC HF ACUTE HYPOXIC RESPIRATORY FAILURE TREATMENT: CARDIOLOGY CONSULT ECHO THANK YOU! Lelo (This form is maintained as a part of the permanent medical record) 2014 [employer]. All Rights Reserved Lelo Zamorano RN, BSN [email or web address] Office: [phone] [facility]
--- NOTE | 2018-06-27 09:54 | PDOC.PN ---
- Subjective Encounter Start Date: 06/27/18 Encounter Start Time: 09:25 Subjective: f/u for combined CHF EF 40-45% on IV Lasix and 11lb weight loss -: since admit. Still weak and SOB with minimal exertion. Appetite -: poor. - Objective Resuscitation Status: Resuscitation Status DNI:No Intubation MAR Reviewed: Yes Vital Signs & Weight: Vital Signs (12 hours) Temp Pulse Resp BP Pulse Ox 06/27/18 08:11 97.9 F 89 18 120/63 96 06/27/18 06:22 97 06/27/18 06:21 111 H 12 06/27/18 04:50 98.3 F 78 19 111/66 99 06/27/18 00:00 99.1 F 90 22 H 115/73 100 Weight Weight 172 lb 1.6 oz I&O: 06/26/18 06/27/18 06/28/18 06:59 06:59 06:59 Intake Total 2740 1135 Output Total 2750 2075 Balance -540 Result Diagrams: 06/27/18 05:21 06/27/18 05:21 Additional Labs: Accuchecks 06/27/18 06/26/18 06/26/18 05:55 20:29 17:16 POC Glucose 109 113 H 69 L 06/26/18 06/26/18 14:00 11:16 POC Glucose 91 132 H Laboratory Tests 06/23/18 06/24/18 06/25/18 05:46 11:56 05:22 INR 3.2 3.3 Sodium Potassium BUN Creatinine 1.37 H Magnesium 06/25/18 06/26/18 06/26/18 05:22 03:13 03:13 INR 3.4 Sodium 129 L 132 L Potassium 3.4 L 3.5 BUN 43 H 46 H Creatinine 1.76 H 1.88 H Magnesium 06/27/18 06/27/18 05:21 05:21 INR 4.2 H* Sodium Potassium BUN Creatinine Magnesium 1.6 Radiology Reviewed by me: Yes (2D echo - EF 40-45%, severe TR, mod MR, RENATA) EKG Reviewed by me: Yes (Tele - A-fib, NSVT) Phys Exam - Physical Examination frail, alert, dyspnea HEENT: PERRLA, sclera anicteric, oral pharynx no lesions Neck: no nodes, no JVD, supple, full ROM diminished in bases, few basilar crackles I/ DARIA in LUSB Cardiovascular: no rub, gallop, irregular Gastrointestinal: soft, non-tender, no distention, positive bowel sounds Musculoskeletal: pulses present, edema present Neurological: normal sensation, moves all 4 limbs Psychiatric: A&O x 3 Skin: normal turgor, cap refill <2 seconds Dx/Plan (1) Acute on chronic combined systolic (congestive) and diastolic (congestive) heart failure Code(s): I50.43 - ACUTE ON CHRONIC COMBINED SYSTOLIC AND DIASTOLIC HRT FAIL Status: Acute Comment: EF 40-45%, IV Lasix 80mg BID, diuresing appropriately and weight loss 11lbs since admit, Palliative care consult (2) Acute hypoxemic respiratory failure Code(s): J96.01 - ACUTE RESPIRATORY FAILURE WITH HYPOXIA Status: Acute Comment: Requiring continuous O2 support (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 - ORGAN-LIMITED AMYLOIDOSIS; I43 - CARDIOMYOPATHY IN DISEASES CLASSIFIED ELSEWHERE Status: Chronic (4) Hyponatremia Code(s): E87.1 - HYPO-OSMOLALITY AND HYPONATREMIA Status: Acute Comment: Persistent, likely due to volume overload (5) Hypokalemia Code(s): E87.6 - HYPOKALEMIA Status: Acute Comment: KCL supplementation, serial K+ monitoring (6) [place] (acute kidney injury) Code(s): N17.9 - ACUTE KIDNEY FAILURE, UNSPECIFIED Status: Acute Comment: Likely iatrogenic, monitor renal function closely, limit nephrotoxic medications and contrast media - Plan plan discussed w/ family, PT/OT, social worker school, out of bed/ambulate, DVT proph w/SCDs Slow clinical improvement -: Continue Lasix 80mg IV BID -: Continue Metalozone 5mg daily -: Palliative care consult -: OOB with cardiac rehab * Hold Coumadin x 24h * AM lab: BMP, PT/INR
--- NOTE | 2018-06-27 09:57 | PQF ---
CLINICAL DOCUMENTATION IMPROVEMENT CLARIFICATION FORM: ICD-10 Updated PLEASE DO AN ADDENDUM TO THE PROGRESS NOTE WITH ANY DOCUMENTATION UPDATES OR ADDITIONS AND CARRY THROUGH TO DC SUMMARY. THANK YOU. DATE: ATTN: DR. LETTY KIRKPATRICK Please exercise your independent, professional judgment in responding to the clarification form. Clinical indicators are provided on the bottom of this form for your review. Please check appropriate box(s): [ x ] Acute Renal Failure (ARF) / Acute Kidney Injury ([place]) [ ] Other Etiology or underlying conditions related to the diagnosis of ARF/ [place]: [ ] Other: [ ] Acute on Chronic Renal Failure please specify Stage of CKD (see below) [ ] CKD without ARF/[place] please specify Stage of CKD [ ] Other diagnosis [ ] Unable to determine National Kidney Foundation Guidelines for CKD Staging Stage I Kidney damage with normal or increased GFR GFR > 90 Stage II Kidney damage with mildly decreased GFR GFR 60-89 Stage III Kidney damage with moderately decreased GFR GFR 30-59 Stage IV Kidney damage with severely decreased GFR GFR 16-29 Stage V Kidney failure GFR<15 ESRD End Stage Renal Disease On dialysis For continuity of documentation, please document condition throughout progress notes and discharge summary. Thank You. CLINICAL INDICATORS - SIGNS / SYMPTOMS / LABS BUN: 29 CR: 1.34 GFR: 29 (ADMIT, 06/22) 32 1.37 32 (06/23) 43 1.76 43 (06/25) 46 1.88 46 (06/26) 50 1.71 48 (06/27) H&P DOCUMENTATION 06/22: ASSESSMENT: 5) RENAL INSUFFICIENCY; CHRONICITY UNCLEAR, WE WILL RECHECK HIS CREATININE LEVEL RISK FACTORS: ACUTE ON CHRONIC SYSTOLIC HF IV DIURETIC (LASIX 06/22 - PRESENT) TREATMENT: SERIAL BASMET MONITORING RENAL FUNCTION (06/22 - PRESENT) THANK YOU! Lelo (This form is maintained as a part of the permanent medical record) 2014 [employer]. All Rights Reserved Lelo Zamorano RN, BSN [email or web address] Office: [phone] [facility]
[2018-06-27] MEDS ORDERED: Warfarin Sodium 3 MG TAB PO SCH (17:00)
--- NOTE | 2018-06-27 17:55 | PDOC.CTH ---
Cardiology Progress Note - Subjective He feels better. He continues to feel SOB but he is more comfortable at rest. - Objective Vital Signs Temp Pulse Resp BP BP Pulse Ox 06/27/18 11:48 98.5 F 85 20 105/75 96 06/27/18 08:11 97.9 F 89 18 120/63 96 06/27/18 06:22 97 06/27/18 06:21 111 H 12 Weight 172 lb 1.6 oz 06/26/18 06/27/18 06/28/18 06:59 06:59 06:59 Intake Total 2740 1135 Output Total 2750 2075 Balance -10 -940 - Physical Examination General/Neuro: alert & oriented x3, NAD Neck: no JVD present Lungs: unlabored respirations Heart: RRR Abdomen: NT/ND Extremities: other: (no edema.) - Telemetry Telemetry Rhythm: NSR - Labs Result Diagrams: 06/27/18 05:21 06/27/18 05:21 Troponin/CKMB CK-MB (CK-2) 1.4 ng/mL (0-6.6) 06/22/18 13:57 Troponin I 0.178 ng/mL (< 0.028) H 06/22/18 20:40 - Assessment/Plan 1. Acute on chronic systolic and diastolic heart failure. 2. Atrial fibrillation, chronic, rate controlled. 3. Amyloid heart 4. EF at 40-45% 5. S.P BiV pacemaker removl due to pocket infection,. 6. S/P PVAI, x 2, currently awaiting AVJ ablation once PPM can be placed. 7. CAD s/p stent to LCx in 2007. 8. Pulmonary hypertension. PLAN: - Continue IV diuresis. - Continue to monitor renal function.
[2018-06-27] MEDS: Melatonin 3 MG TAB PO PRN (21:17)
[2018-06-28 05:28] LABS: INR-International Normal Ratio 3.6; Prothrombin Time 35.5 SEC (12.0-14.7)
[2018-06-28] MEDS: Levothyroxine 175 MCG TAB PO SCH (05:29)
[2018-06-28] MEDS: Furosemide 40 MG/4 ML VIAL SLOW IVP SCH (05:29)
[2018-06-28 05:40] LABS: Anion Gap 11 mmol/L (10-20); BUN (Urea Nitrogen) 53 mg/dL (8.4-25.7); Calc. Creatinine Clearance 40 mL/min (70-130); Calcium 9.5 mg/dL (7.8-10.44); Carbon Dioxide 37 mmol/L (23-31); Chloride 87 mmol/L (98-107); Estimated GFR-MDRD 43; Glucose 132 mg/dL (80-115); Potassium 3.3 mmol/L (3.5-5.1); Sodium 132 mmol/L (136-145)
[2018-06-28] MEDS: Mometasone/Formoterol 120 PUFF INHALER INH SCH ×2 (06:49→18:48)
[2018-06-28] MEDS: Potassium Chloride 20 MEQ TAB PO SCH ×2 (08:40→20:26)
[2018-06-28] MEDS: Metoprolol Tartrate 50 MG TAB PO SCH ×3 (08:41→20:26)
[2018-06-28] MEDS: Magnesium Oxide 400 MG TAB PO SCH ×2 (08:41→20:26)
[2018-06-28] MEDS: Calcium Carbonate + Vit D 250 MG TAB PO SCH (08:41)
[2018-06-28] MEDS: Aspirin 81 mg Enteric Coated Tablet PO SCH (08:41)
[2018-06-28] MEDS: Loratadine 10 MG TAB PO SCH (08:41)
[2018-06-28] MEDS: Metolazone 5 MG TAB PO SCH (08:41)
[2018-06-28] MEDS: Fluticasone Propionate Nasal Spray 16 gm Bottle NASAL SCH (08:42)
[2018-06-28] MEDS ORDERED: Furosemide 40 MG/4 ML VIAL SLOW IVP SCH ×2 (09:34→14:00)
--- NOTE | 2018-06-28 09:40 | PDOC.PN ---
- Subjective Encounter Start Date: 06/28/18 Encounter Start Time: 09:35 Subjective: f/u for CHF exacerbation on IV Lasix/Metolazone. Weight down 12lbs. Still -: with some SOB but improved. - Objective Resuscitation Status: Resuscitation Status DNI:No Intubation MAR Reviewed: Yes Vital Signs & Weight: Vital Signs (12 hours) Temp Pulse Resp BP Pulse Ox 06/28/18 07:20 98.0 F 94 17 122/78 100 06/28/18 06:50 100 06/28/18 06:49 73 12 06/28/18 04:00 97.6 F 72 20 128/66 95 Weight Weight 171 lb 7 oz I&O: 06/27/18 06/28/18 06/29/18 06:59 06:59 06:59 Intake Total 1135 1650 Output Total 2075 1650 Balance -940 0 Result Diagrams: 06/27/18 05:21 06/28/18 05:07 Additional Labs: Accuchecks 06/28/18 06/27/18 06/27/18 05:10 17:24 12:27 POC Glucose 143 H 82 129 H 06/27/18 10:37 POC Glucose 158 H Laboratory Tests 06/23/18 06/24/18 06/25/18 05:46 11:56 05:22 INR 3.2 3.3 Sodium Potassium BUN Creatinine 1.37 H Magnesium 06/25/18 06/26/18 06/26/18 05:22 03:13 03:13 INR 3.4 Sodium 129 L 132 L Potassium 3.4 L 3.5 BUN 43 H 46 H Creatinine 1.76 H 1.88 H Magnesium 06/27/18 06/27/18 05:21 05:21 INR 4.2 H* Sodium Potassium BUN Creatinine Magnesium 1.6 EKG Reviewed by me: Yes (Tele - A-fib in 90's) Phys Exam - Physical Examination Constitutional: NAD alert, responsive HEENT: PERRLA, sclera anicteric, oral pharynx no lesions Neck: no nodes, no JVD, supple, full ROM few basilar crackles Respiratory: no wheezing, no rales S1, S2 Cardiovascular: no rub, gallop, irregular Gastrointestinal: soft, non-tender, no distention, positive bowel sounds decreased edema in LE's Musculoskeletal: pulses present Neurological: normal sensation, moves all 4 limbs Psychiatric: A&O x 3 Skin: no rash, normal turgor, cap refill <2 seconds Dx/Plan (1) Acute on chronic combined systolic (congestive) and diastolic (congestive) heart failure Code(s): I50.43 - ACUTE ON CHRONIC COMBINED SYSTOLIC AND DIASTOLIC HRT FAIL Status: Acute Comment: EF 40-45%, decrease IV Lasix 60mg BID, diuresing appropriately and weight loss 12lbs since admit, Palliative care consult (2) Acute hypoxemic respiratory failure Code(s): J96.01 - ACUTE RESPIRATORY FAILURE WITH HYPOXIA Status: Acute Comment: Improved, trial on RA (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 - ORGAN-LIMITED AMYLOIDOSIS; I43 - CARDIOMYOPATHY IN DISEASES CLASSIFIED ELSEWHERE Status: Chronic (4) Hyponatremia Code(s): E87.1 - HYPO-OSMOLALITY AND HYPONATREMIA Status: Acute Comment: Persistent, likely due to volume overload (5) Hypokalemia Code(s): E87.6 - HYPOKALEMIA Status: Acute Comment: KCL supplementation, serial K+ monitoring (6) [place] (acute kidney injury) Code(s): N17.9 - ACUTE KIDNEY FAILURE, UNSPECIFIED Status: Acute Comment: Likely iatrogenic, monitor renal function closely, limit nephrotoxic medications and contrast media - Plan plan discussed w/ family, PT/OT, psychosocial rehabilitation counselor, out of bed/ambulate Stable currently -: Decrease Lasix 60mg IV BID -: Continue Metolazone 5mg daily -: Increase KCL 40meq BID -: AM lab: BMP * OOB/ambulate with cardiac rehab * Hold Coumadin another 24h
[2018-06-28] MEDS ORDERED: Potassium Chloride 20 MEQ TAB PO SCH ×2 (10:00→12:00)
--- NOTE | 2018-06-28 17:46 | PDOC.CTH ---
Cardiology Progress Note - Subjective He is doing better. Breathing much better. - Objective Vital Signs Temp Pulse Pulse Pulse Resp BP BP 06/28/18 15:10 98.1 F 103 H 16 06/28/18 15:01 92 92 107/77 121/80 06/28/18 11:00 97.6 F 84 17 06/28/18 07:20 98.0 F 94 17 06/28/18 06:50 06/28/18 06:49 73 12 BP BP Pulse Ox 06/28/18 15:10 126/94 H 100 06/28/18 15:01 06/28/18 11:00 119/75 100 06/28/18 07:20 122/78 100 06/28/18 06:50 100 06/28/18 06:49 Weight 171 lb 7 oz 06/27/18 06/28/18 06/29/18 06:59 06:59 06:59 Intake Total 1135 1650 Output Total 2075 1650 Balance -940 0 - Physical Examination General/Neuro: alert & oriented x3, NAD Neck: no JVD present Lungs: CTA, unlabored respirations Heart: other: (Irreg) Abdomen: NT/ND Extremities: + edema B (trace) - Telemetry Telemetry Rhythm: Afib HR 80's. - Labs Result Diagrams: 06/27/18 05:21 06/28/18 05:07 Troponin/CKMB CK-MB (CK-2) 1.4 ng/mL (0-6.6) 06/22/18 13:57 Troponin I 0.178 ng/mL (< 0.028) H 06/22/18 20:40 - Assessment/Plan 1. Acute on chronic systolic and diastolic heart failure. 2. Atrial fibrillation, chronic, rate controlled. 3. Amyloid heart 4. EF at 40-45% 5. S.P BiV pacemaker removl due to pocket infection,. 6. S/P PVAI, x 2, currently awaiting AVJ ablation once PPM can be placed. 7. CAD s/p stent to LCx in 2007. 8. Pulmonary hypertension. PLAN: - Switch to home dose of PO diuretic - Likely home tomorrow. - Replace K.
[2018-06-28] MEDS: Torsemide 20 MG TAB PO SCH (20:27)
[2018-06-29] MEDS: Levothyroxine 175 MCG TAB PO SCH (05:31)
[2018-06-29 05:59] LABS: INR-International Normal Ratio 2.9; Prothrombin Time 30.2 SEC (12.0-14.7)
[2018-06-29] MEDS: Mometasone/Formoterol 120 PUFF INHALER INH SCH (07:36)
[2018-06-29] MEDS: Torsemide 20 MG TAB PO SCH ×2 (08:08→14:44)
[2018-06-29] MEDS: Metolazone 5 MG TAB PO SCH (08:08)
[2018-06-29] MEDS: Magnesium Oxide 400 MG TAB PO SCH (08:08)
[2018-06-29] MEDS: Aspirin 81 mg Enteric Coated Tablet PO SCH (08:09)
[2018-06-29] MEDS: Calcium Carbonate + Vit D 250 MG TAB PO SCH (08:09)
[2018-06-29] MEDS: Metoprolol Tartrate 50 MG TAB PO SCH ×2 (08:09→14:44)
[2018-06-29] MEDS: Loratadine 10 MG TAB PO SCH (08:09)
[2018-06-29] MEDS: Potassium Chloride 20 MEQ TAB PO SCH (08:09)
[2018-06-29] MEDS: Febuxostat 40 MG TAB PO SCH (08:09)
[2018-06-29] MEDS: Fluticasone Propionate Nasal Spray 16 gm Bottle NASAL SCH (08:10)
[2018-06-29] MEDS ORDERED: Ergocalciferol 1.25 MG(50,000 UNITS) CAP PO SCH (09:00)
--- NOTE | 2018-06-29 10:33 | DIS ---
DATE OF ADMISSION: 06/22/2018 DATE OF DISCHARGE: 06/29/2018 DISCHARGE DIAGNOSES: 1. Acute on chronic combined systolic and diastolic congestive heart failure with ejection fraction of 40%-45%, stable. 2. Acute hypoxic respiratory failure, improved. 3. Cardiac amyloid heart disease. 4. Chronic atrial fibrillation with variable rate. 5. Chronic anticoagulation with Coumadin. 6. Supratherapeutic INR, resolved. 7. Hypokalemia. 8. Acute kidney injury, iatrogenic. 9. Deconditioning. CONSULTATIONS: Dr. Carroll with Cardiology Service. PERTINENT LABORATORY AND X-RAY FINDINGS: Sodium ranged between 130-137. Potassium ranged between 3. 1-4.0, creatinine ranged between 1.37-1.89, estimated GFR ranged between 43-64. BNP 1256. CBC showe d a hemoglobin ranging between 12.8-13.2. INR ranged between 2.9-4.2. A 2D transthoracic echocardio gram dated 06/23/2018 showed ejection fraction of 40%-45%. Moderate concentric left ventricular hype rtrophy. Moderate right atrial enlargement. Moderate mitral regurgitation. Severe tricuspid regurg itation. HOSPITAL COURSE: The patient was initially admitted to the telemetry unit after presenting with incr easing shortness of breath in the context of known cardiomyopathy with cardiac amyloidosis and volume overload. The patient received nitroglycerin, aspirin and was placed on IV Lasix. The patient was also given oxygen supplementation and evaluated by the Cardiology Service. The patient was slow to c linically improve with diuretic therapy, however, sustained approximate 12-pound weight loss througho ut the hospital course with diuresis. The patient was continued on IV Lasix, transitioning to oral t orsemide and Zaroxolyn, tolerating without difficulty. The patient was also noted with supratherapeu tic INR with Coumadin being held for approximately 48 hours allowing INR into the therapeutic range b y the time of discharge. No current evidence of acute blood loss anemia or active gastrointestinal b leed. The patient also received electrolyte replacements with potassium supplementation due to incre ased diuretic therapy. The patient was [facility] the cardiac [facility] with recommendations for home palliative care and ongoing cardiac rehabilitati on on discharge. I have examined the patient at the time of discharge and discussed followup instruc tions. The patient verbalized understanding and agreement, ready for discharge on 06/29/2018. DISCHARGE MEDICATIONS: 1. Enteric coated aspirin 81 mg p.o. daily. 2. Calcium carbonate 1250 mg/200 units 1 tablet p.o. daily. 3. Vitamin D2 50,000 units p.o. weekly. 4. Uloric 40 mg p.o. q.48 hours. 5. Cierra 60 mg p.o. daily. 6. Flonase 2 sprays in each naris daily. 7. Breo Ellipta 200/25 mcg 1 inhalation daily. 8. Levothyroxine 175 mcg p.o. daily. 9. Magnesium oxide 400 mg p.o. b.i.d. 10. Metoprolol tartrate 50 mg p.o. t.i.d. 11. Protonix 40 mg p.o. daily. 12. Torsemide 80 mg p.o. t.i.d. 13. Coumadin 4 mg p.o. daily. 14. Zaroxolyn 5 mg p.o. daily. 15. K-Dur 40 mEq p.o. daily. FOLLOWUP: The patient may follow up with his primary care provider, Dr. Marco Antonio Buckley in [place], [place]. The patient may follow up with his primary lead refinery supervisor, Dr. Nik Jean. CONDITION ON DISCHARGE: Guarded. ACTIVITY: Ad gaye. Rolling walker with standby/contact guard assistance. Recommend ongoing physical therapy through home health services and cardiac rehabilitation. DIET: Heart healthy and ADA. CODE STATUS: Do not intubate. DISPOSITION: Home with home health services out of [place], [place], 06/29/2018. Total time preparing and coordinating discharge is 38 minutes.
[2018-06-29 11:05] VITALS: TEMP 98.4
--- NOTE | 2018-06-29 13:42 | EKG ---
Test Reason : CP Blood Pressure : / mmHG Vent. Rate : 095 BPM Atrial Rate : 113 BPM P-R Int : 000 ms QRS Dur : 102 ms QT Int : 376 ms P-R-T Axes : 000 -59 128 degrees QTc Int : 472 ms Atrial fibrillation with premature ventricular or aberrantly conducted complexes Left axis deviation Inferior infarct , age undetermined Anterior infarct , age undetermined Q waves V1-V3 No STEMI Abnormal ECG Confirmed by SANGEETA HANSON ([id number]), telegraph editor KATE PHILIPPE ([id number]) on 06/29/2018 1:41:28 PM Referred By: Confirmed By:SANGEETA HANSON
[2018-06-29 15:01] VITALS: BP 111/75
== END 2018-06-29 15:05 | disposition home health service (06) | DRG 291 ==
LOC: ERS 13:16 → OBSVTOIN 17:13 → 2SW 17:13 → 2NO 06-23 16:38
PROVIDERS: ADMIT Internal Medicine; ATTEND Internal Medicine
DX: I50.43 Acute on chronic combined systolic (congestive) and diastolic (congestive) heart failure (principal); J96.01 Acute respiratory failure with hypoxia; E87.1 Hypo-osmolality and hyponatremia; N17.9 Acute kidney failure, unspecified; E85.4 Organ-limited amyloidosis; I43 Cardiomyopathy in diseases classified elsewhere; I47.2 Ventricular tachycardia; E87.6 Hypokalemia; E03.9 Hypothyroidism, unspecified; I48.2 Chronic atrial fibrillation; I25.10 Atherosclerotic heart disease of native coronary artery without angina pectoris; I27.20 Pulmonary hypertension, unspecified; I08.1 Rheumatic disorders of both mitral and tricuspid valves; Z95.5 Presence of coronary angioplasty implant and graft
CPT/HCPCS: 36415; 36416; 71045; 80048; 80053; 82553; 83735; 83880; 84484; 85025; 85610; 85730; 93005; 93306; 93798; 94664; 94760; 96374; J1940

== ENCOUNTER 2018-07-28 15:11 | Observation (INO) | payer MEDICARE ==
[2018-07-28 16:09] LABS: #Basophils 0.1 thou/uL (0.0-0.2); #Eosinphils 0.1 thou/uL (0.0-0.7); #Lymphocytes 1.6 thou/uL (1.20-3.40); #Monocytes 0.8 thou/uL (0.11-0.59); #Neutrophils 5.8 thou/uL (1.40-6.50); %Basophils 0.7 % (0.0-1.0); %Eosinophils 1.2 % (0.0-10.0); %Lymphocytes 18.6 % (21.0-51.0); %Monocytes 9.5 % (0.0-10.0); Hemoglobin 14.7 g/dL (14.0-18.0); Mean Corpuscular HGB CONC 30.4 g/dL (32.0-36.0); Mean Corpuscular Hemoglobin 28.9 pg (27.0-31.0); Mean Corpuscular Volume 95.1 fL (78.0-98.0); Platelet Count 163 thou/uL (130-400); RBC Distribution Width 15.6 % (11.5-14.5); Red Blood Cell (RBC) Count 5.09 mill/uL (4.70-6.10); White Blood Cell (WBC) Count 8.3 thou/uL (4.8-10.8)
[2018-07-28 16:16] LABS: Prothrombin Time 42.6 SEC (12.0-14.7)
[2018-07-28 16:20] LABS: INR-International Normal Ratio 4.5
[2018-07-28 16:30] LABS: ALT (SGPT) 49 U/L (8-55); AST (SGOT) 63 U/L (5-34); Albumin 3.1 g/dL (3.4-4.8); Alkaline Phosphatase 135 U/L (40-150); Anion Gap 13 mmol/L (10-20); BUN (Urea Nitrogen) 51 mg/dL (8.4-25.7); Bilirubin, Total 0.5 mg/dL (0.2-1.2); Calc. Creatinine Clearance 0 mL/min (70-130); Calcium 9.3 mg/dL (7.8-10.44); Carbon Dioxide 27 mmol/L (23-31); Chloride 102 mmol/L (98-107); Estimated GFR-MDRD 45; Glucose 81 mg/dL (80-115); Potassium 3.9 mmol/L (3.5-5.1); Protein, Total 8.1 g/dL (5.8-8.1); Sodium 138 mmol/L (136-145)
--- NOTE | 2018-07-28 17:06 | RAD ---
CHEST 1 VIEW: Date: 07/28/18 HISTORY: Dyspnea. COMPARISON: Radiograph dated 06/22/18. FINDINGS: Heart size is enlarged. There appear to be some emphysematous changes in the upper lobes. Chronic sca rring in the lingula and right lower lobe. IMPRESSION: Mild cardiomegaly, similar. POS: [facility]
[2018-07-28 19:08] VITALS: BMI 26.2
[2018-07-28 19:53] LABS: Troponin I 0.232 ng/mL (< 0.028)
[2018-07-28] MEDS ORDERED: HumaLOG 300 UNITS/3 ML VIAL SC PRN ×2 (21:08)
[2018-07-28] MEDS ORDERED: Ondansetron PF 4 MG/2 ML Vial IVP PRN (21:08)
[2018-07-28] MEDS ORDERED: Dextrose 50% Abboject 50 ML SYRINGE SLOW IVP PRN (21:08)
[2018-07-28] MEDS ORDERED: Acetaminophen 500 MG TAB PO PRN (21:08)
[2018-07-28] MEDS ORDERED: hydrALAZINE 20 MG/ML VIAL SLOW IVP PRN (21:08)
[2018-07-28] MEDS ORDERED: Ondansetron ODT 4 MG TAB PO PRN (21:08)
[2018-07-28] MEDS ORDERED: Dextrose 5% in Water 1,000 ML IV PRN (21:08)
[2018-07-28] MEDS ORDERED: Mirtazapine 15 MG TAB PO SCH (21:45)
[2018-07-28] MEDS ORDERED: Metoprolol Tartrate 50 MG TAB PO SCH (21:45)
[2018-07-28 22:26] LABS: Glucose 106 mg/dL (80-115)
[2018-07-28 22:36] LABS: Troponin I 0.237 ng/mL (< 0.028)
--- NOTE | 2018-07-29 03:50 | HP ---
PRIMARY CARE PROVIDER: Dr. Marco Antonio Rosenberg. CHIEF COMPLAINT: Shortness of breath. HISTORY OF PRESENT ILLNESS: This is a 68-year-old male, who initially presented to [facility] Emergency Department, complaining of increased shortness of breath over the last 24 to 48 hours. The patient states he underwent a recent infusion for cardiac amyloidosis with his bitumastic applier in [facility] on 07/26/2018, stating this was his first treatment for his amyloidosis. The patient is unsure the name of the medication that was infused, however, developed symptoms of increased shortness of breath with minimal exertion over the next 24-48 hours. The patient had associated weakness, mild dry cough without specific increase in swelling of his lower extremities. The patient's history is significant for chronic atrial fibrillation with chronic anticoagulation with Coumadin, as well as acute on chronic combined congestive heart failure. The patient states he has been compliant with his chronic medication regimen and overall has been doing well at home. The patient states he has been ambulating with a rolling walker at his home after his recent discharge from [facility] on 06/29/2018 for heart failure exacerbation. The patient was diuresed and lost 12 pounds during the admission 06/22/2018 through 06/29/2018. The patient denied any specific documented fever, chills, trauma, or hemoptysis. The patient denied any recent travel history. The patient states he normally uses oxygen at home at 3 L per minute by nasal cannula, but denied increasing the flow rate over the last 48 hours. In the emergency room, the patient underwent general evaluation, receiving aspirin 324 mg. A chest imaging was unremarkable for worsening pulmonary edema and EKG showed a chronic atrial fibrillation with controlled rate. PAST MEDICAL HISTORY: 1. Acute on chronic combined systolic and diastolic congestive heart failure with ejection fraction of 40% to 45%. 2. Chronic hypoxic respiratory failure, on 3 L per minute by nasal cannula. 3. Cardiac amyloid heart disease. 4. Chronic atrial fibrillation with variable rate, on chronic Coumadin. 5. Deconditioning. 6. Hypertension. PAST SURGICAL HISTORY: 1. Status post percutaneous coronary intervention with cardiac stent placement. 2. Status post pacemaker placement with subsequent removal due to pocket infection. 3. Status post bowel resection. CURRENT MEDICATIONS: 1. Enteric-coated aspirin 81 mg p.o. daily. 2. Calcium carbonate one tablet p.o. daily. 3. Vitamin D2, 78435 units p.o. q.7 days. 4. Uloric 40 mg p.o. daily. 5. Cierra 60 mg p.o. daily. 6. Flonase nasal spray, 2 sprays in each naris daily. 7. Breo Ellipta 200/25 mcg one inhalation daily. 8. Levothyroxine 175 mcg p.o. daily. 9. Magnesium oxide 400 mg p.o. b.i.d. 10. Zaroxolyn 5 mg p.o. daily. 11. Lopressor 50 mg p.o. t.i.d. 12. Remeron 15 mg p.o. at bedtime. 13. Protonix 40 mg p.o. daily. 14. Demadex 80 mg p.o. t.i.d. with meals. 15. Coumadin 4 mg p.o. daily. 16. K-Dur 40 mEq p.o. daily. ALLERGIES: NO KNOWN DRUG ALLERGIES. FAMILY HISTORY: No inheritable diseases per patient report. SOCIAL HISTORY: The patient resides in [place], [place]. No current alcohol, tobacco, or illicit drug use. Remote history of tobacco use. Ambulatory with the use of a rolling walker. REVIEW OF SYSTEMS: CONSTITUTIONAL: Negative for weight loss or gain, ability to conduct usual activities. SKIN: Negative for rash, itching. EYES: Negative for double vision, pain. ENT/MOUTH: Negative for nose bleeding, neck stiffness, pain, tenderness. CARDIOVASCULAR: Negative for palpitations, dyspnea on exertion, orthopnea. RESPIRATORY: Negative for shortness of breath, wheezing, cough, hemoptysis, fever or night sweats. GASTROINTESTINAL: Negative for poor appetite, abdominal pain, heartburn, nausea, vomiting, constipation, or diarrhea. GENITOURINARY: Negative for urgency, frequency, dysuria, nocturia. MUSCULOSKELETAL: Negative for pain, swelling. NEUROLOGIC/PSYCHIATRIC: Negative for anxiety, depression. ALLERGY/IMMUNOLOGIC: Negative for skin rash, bleeding tendency. Otherwise negative except as stated per HPI. PHYSICAL EXAMINATION: VITAL SIGNS: On admission, blood pressure 119/68, pulse 95, respiratory rate 20, temperature 97.8 degrees Fahrenheit, O2 saturation 100% on 3 L per minute via nasal cannula. GENERAL APPEARANCE: This is a 68-year-old male, alert and oriented x3, pleasant, responsive, in no acute distress. HEENT: Pupils are equal, round, reactive to light and accommodation. Extraocular muscles are intact. No scleral icterus. No conjunctival injection. Nares patent. OP is clear. Teeth in fair repair. NECK: Supple. No cervical adenopathy. No thyromegaly. No carotid bruits. No JVD appreciated. Cervical spine with full active and passive range of motion. No meningeal signs noted. CHEST: Lungs are clear to auscultation bilaterally. CARDIOVASCULAR: S1 and S2 with irregular rate and rhythm. ABDOMEN: Flat, soft, nontender, and nondistended. Bowel sounds are positive in all four quadrants. There is no hepatosplenomegaly. No abdominal bruits. No rebound or guarding appreciated. EXTREMITIES: Warm and dry with fair turgor. Mild edema to the ankle region bilaterally. Pulses palpable distally at the dorsalis pedis, posterior tibial, and popliteal arteries bilaterally. Capillary refill less than 2 seconds. NEUROLOGIC: Cranial nerves 2 through 12 are grossly intact. No focal or lateralizing signs appreciated. PERTINENT LAB AND X-RAY FINDINGS: Sodium 138, potassium 3.9, chloride 102, CO2 of 27, BUN 51, creatinine 1.80, estimated GFR 45, glucose 81, calcium 9.3, total bilirubin 0.5. AST 63, ALT 49, alkaline phosphatase 135, troponin I 0.216 to 0.232. BNP 1107, previously noted on 06/22/2018 of 1255. CBC within normal limits. PTT 42.6, INR 4.5. Portable chest x-ray dated 07/28/2018 showed mild cardiomegaly without acute pulmonary edema. EKG dated 07/28/2018 by my interpretation shows atrial fibrillation with rates in the 80s. Attenuated R-waves noted in the precordial leads. Left axis deviation noted. No acute ST-T wave changes appreciated. ASSESSMENT/PLAN: 1. Dyspnea. Exact etiology unclear. Suspect the component of recent infusion for cardiac amyloidosis. We will continue to monitor clinical response. No current evidence of acute worsening of congestive heart failure. Continue home oxygen supplementation at 3 L per minute by nasal cannula. 2. Chronic hypoxic respiratory failure. Stable currently. Continue oxygen supplementation as outlined in #1. 3. Chronic combined systolic and diastolic heart failure. Stable currently. Appears compensated without acute exacerbation. Continue home regimen to include Demadex 80 mg p.o. t.i.d. 4. Supratherapeutic INR. Mild elevation of INR at 4.5. Hold Coumadin x24 hours and repeat INR in the a.m. 5. Cardiac amyloidosis. Stable currently. The patient to receive outpatient infusions with his bitumastic applier in the [place] area upon discharge. 6. Chronic kidney disease stage 3. Avoid nephrotoxic agents and limit contrast exposure. Serial creatinine monitoring. 7. General weakness. Obtain PT evaluation for general functional assessment. Fall risk precautions. 8. Prophylaxis. SCDs while in bed. Pepcid 20 mg p.o. b.i.d. PT evaluation in the a.m. 9. Code status is do not intubate, confirmed with the patient. Surrogate medical decision maker is the patient's daughter. Job ID: [id number]
[2018-07-29] MEDS ORDERED: Levothyroxine 175 MCG TAB PO SCH (06:00)
[2018-07-29 06:13] LABS: Prothrombin Time 43.8 SEC (12.0-14.7)
[2018-07-29 06:25] LABS: Band 2 % (5-11); Hemoglobin 14.6 g/dL (14.0-18.0); Lymphocytes 21 % (21-51); MDiff Complete? YES; Mean Corpuscular Hemoglobin 29.2 pg (27.0-31.0); Mean Corpuscular Volume 94.2 fL (78.0-98.0); Mean Platelet Volume 8.8 fL (7.4-10.4); Monocytes 9 % (0-10); Neutrophil 68 % (42-75); Platelet Count 170 thou/uL (130-400); RBC Distribution Width 15.7 % (11.5-14.5); White Blood Cell (WBC) Count 7.5 thou/uL (4.8-10.8)
[2018-07-29 06:26] LABS: INR-International Normal Ratio 4.7
[2018-07-29] MEDS ORDERED: Mometasone/Formoterol 120 PUFF INHALER INH SCH (06:30)
[2018-07-29 06:31] LABS: Anion Gap 12 mmol/L (10-20); BUN (Urea Nitrogen) 52 mg/dL (8.4-25.7); Calc. Creatinine Clearance 45 mL/min (70-130); Calcium 9.3 mg/dL (7.8-10.44); Carbon Dioxide 28 mmol/L (23-31); Chloride 103 mmol/L (98-107); Estimated GFR-MDRD 49; Glucose 82 mg/dL (80-115); Sodium 139 mmol/L (136-145)
[2018-07-29] MEDS: Torsemide 20 MG TAB PO SCH ×4 (08:10→16:50)
[2018-07-29] MEDS ORDERED: Febuxostat 40 MG TAB PO SCH (09:00)
[2018-07-29] MEDS ORDERED: Metolazone 5 MG TAB PO SCH (09:00)
[2018-07-29] MEDS ORDERED: Aspirin 81 mg Enteric Coated Tablet PO SCH (09:00)
[2018-07-29] MEDS ORDERED: Calcium Carbonate + Vit D 1 TAB PO SCH (09:00)
[2018-07-29] MEDS ORDERED: Loratadine 10 MG TAB PO SCH (09:00)
[2018-07-29] MEDS ORDERED: Magnesium Oxide 400 MG TAB PO SCH (09:00)
[2018-07-29] MEDS ORDERED: Famotidine 20 MG TAB PO SCH (09:00)
[2018-07-29] MEDS ORDERED: Fluticasone Propionate Nasal Spray 16 gm Bottle NASAL SCH (09:00)
[2018-07-29] MEDS ORDERED: Potassium Chloride 20 MEQ TAB PO SCH (09:00)
[2018-07-29] MEDS: Metoprolol Tartrate 50 MG TAB PO SCH ×2 (10:04→16:46)
[2018-07-29 11:52] VITALS: BP 140/84; TEMP 98.4
[2018-07-29] MEDS ORDERED: Mirtazapine 15 MG TAB PO SCH (21:00)
--- NOTE | 2018-07-30 06:11 | DIS ---
DATE OF ADMISSION: 07/28/2018 DATE OF DISCHARGE: 07/29/2018 DISCHARGE DIAGNOSES: 1. Dyspnea, likely secondary to patisiran infusion. 2. Chronic hypoxic respiratory failure, stable. 3. Chronic combined systolic and diastolic heart failure with ejection fraction 40% to 45%. 4. Supratherapeutic INR, mild elevation. 5. Cardiac amyloidosis with current treatment with patisiran infusion. 6. Chronic kidney disease stage 3. 7. General weakness. CONSULTATIONS: None. PERTINENT LAB AND X-RAY FINDINGS: Creatinine ranged between 1.70 to 1.80. Estimated GFR ranged between 45 to 49. Troponin I ranged between 0.216 to 0.237. BNP 1107, previously noted 1255 on 06/22/2018. Portable chest x-ray dated 07/28/2018, showed mild cardiomegaly without acute process. HOSPITAL COURSE: The patient was initially observed on the telemetry unit after presenting with increased dyspnea after recent infusion of patisiran for cardiac amyloidosis. The patient developed increased dyspnea, undergoing metabolic and radiographic evaluation showing stable findings as stated previously. The patient was ruled out for worsening heart failure exacerbation. There was noted with mild elevation to the INR of 4.5 to 4.7. The patient was held on Coumadin during this hospital course with recommendations to hold for approximately 48 hours after discharge. The patient was given general pulmonary supportive management and remained clinically stable under observation. Telemetry monitoring did show evidence of nonsustained ventricular tachycardia up to 10 beats with a known history of ischemic cardiomyopathy with a current LifeVest. The patient continued metoprolol 50 mg t.i.d. with stable vital signs through the remainder of the hospital course. I have examined the patient at the time of discharge and discussed followup instructions. The patient verbalized understanding and in agreement, and ready for discharge on 07/29/2018. DISCHARGE MEDICATIONS: 1. Enteric-coated aspirin 81 mg p.o. daily. 2. Calcium carbonate 1 tablet p.o. daily. 3. Vitamin D2, 50,000 units p.o. q.7 days. 4. Uloric 40 mg p.o. daily. 5. Cierra 60 mg p.o. daily. 6. Flonase nasal spray 2 sprays each naris daily. 7. Breo Ellipta 200/25 mcg 1 inhalation daily. 8. Levothyroxine 175 mcg p.o. daily. 9. Magnesium oxide 400 mg p.o. b.i.d. 10. Metolazone 5 mg p.o. daily. 11. Metoprolol tartrate 50 mg p.o. t.i.d. 12. Remeron 15 mg p.o. at bedtime. 13. Protonix 40 mg p.o. daily. 14. Patisiran complex infusion q.3 weeks. 15. K-Dur 40 mEq p.o. daily. 16. Torsemide 40 mg p.o. b.i.d. 17. Coumadin 4 mg p.o. daily, hold until 07/31/2018. FOLLOWUP: The patient is to follow up with his primary care provider, Dr. Marco Antonio Rosenberg. CONDITION ON DISCHARGE: Fair. ACTIVITY: Ad-gaye. DIET: Heart healthy. SPECIAL INSTRUCTIONS: Continue oxygen supplementation at 2 L/min to 3 L/min by nasal cannula continuously. CODE STATUS: Chemical only, no intubation. DISPOSITION: Discharged home, 07/29/2018. Job ID: [id number]
[2018-08-04] MEDS ORDERED: Ergocalciferol 1.25 MG(50,000 UNITS) CAP PO SCH (09:00)
== END 2018-07-29 17:07 | disposition home or self-care (01) ==
LOC: ERS 15:11 → 2SW 17:45
PROVIDERS: ADMIT Family Medicine; ATTEND Family Medicine
DX: R06.00 Dyspnea, unspecified (principal); I48.2 Chronic atrial fibrillation; J96.11 Chronic respiratory failure with hypoxia; E85.4 Organ-limited amyloidosis; I43 Cardiomyopathy in diseases classified elsewhere; I13.0 Hypertensive heart and chronic kidney disease with heart failure and stage 1 through stage 4 chronic kidney disease, or unspecified chronic kidney disease; I50.43 Acute on chronic combined systolic (congestive) and diastolic (congestive) heart failure; N18.3 Chronic kidney disease, stage 3 (moderate); Z95.5 Presence of coronary angioplasty implant and graft; Z95.0 Presence of cardiac pacemaker; Z90.49 Acquired absence of other specified parts of digestive tract; Z99.81 Dependence on supplemental oxygen; Z79.82 Long term (current) use of aspirin; Z79.01 Long term (current) use of anticoagulants; Z79.51 Long term (current) use of inhaled steroids; Z79.899 Other long term (current) drug therapy
CPT/HCPCS: 71045; 80048; 80053; 82553; 82947 ×2; 82962; 83880; 84484 ×2; 85007; 85025; 85027; 85610 ×2; 93005; 94640; 97139 ×2; 99285; G0378 ×2; 36415; 36416